=== PATIENT | female | born 1950 | race Caucasian/White ===

== ENCOUNTER 2018-11-23 10:31 | Day surgery (SDC) | payer OTHER ==
--- OUTSIDE RECORDS SUMMARY | 2018-11-23 10:34 | XMS REPORT | Encounter Summary ---
:1950 Author Care Team Providers Name Role Phone Christine Loving Primary Care Provider [phone] Reason for Visit sore throat; congestion; Cough Instructions 1. Acute maxillary sinusitis Bactrim DS 800 mg-160 mg tablet Kenalog 40 mg/mL suspension for injection 2. Impaired glucose tolerance hemoglobin A1c, QN, blood CMP, serum or plasma urinalysis, complete CBC w/ auto diff metformin ER 500 mg tablet,extended release 24 hr 3. Hyperlipidemia lipid panel, serum TSH, serum or plasma simvastatin 20 mg tablet Discussion Note RTC for any other concerns; counseled on diet and exercise Patient educational handouts: No information available. Plan of Care Patient Instructions medication as directed; push fluids and ensure rest; focus on healthy eating habits and exercise Reminders Provider Appointments None recorded. Lab Hemoglobin [place] a1C, QN, Blood 06/15/2018 [facility] (Lab) CMP, Serum or [place] Plasma 06/15/2018 [facility] (Lab) Lipid Panel, [place] Serum 06/15/2018 [facility] (Lab) TSH, Serum or [place] Plasma 06/15/2018 [facility] (Lab) Urinalysis, [place] Complete 06/15/2018 [facility] (Lab) CBC W/ Auto [place] Diff 06/15/2018 [facility] (Lab) Referral None recorded. Procedures None recorded. Surgeries None recorded. Imaging None recorded. Medications Name Start Date Bactrim DS 800 mg-160 mg tablet Take 1 tablet every 12 hours by oral route for 7 days. Kenalog 40 mg/mL suspension for injection Take 40 mg by injection route. meloxicam 15 mg tablet Take 1 tablet every day by oral route as needed. metformin ER 500 mg tablet,extended release 24 hr TAKE 2 TABLETS BY MOUTH EVERY DAY simvastatin 20 mg tablet TAKE 1 TABLET BY MOUTH EVERY DAY AT BEDTIME Transderm-Scop 1.5 mg transdermal patch (1 mg over 3 days) Apply 1 patch every 72 hours by transdermal route. Medications Administered Name Date Kenalog 40 mg/mL suspension for injection 5638-83-25F15:12:00 Take 40 mg by injection route. Vitals Height Weight BMI Blood Pressure 62 in 129 lbs 1 oz 23.6 kg/m2 126/74 mm[Hg] Lab Results None recorded. Allergies Code Code System Name Reaction Severity Status Onset 20340822 RxNorm Compazine Active 4053 RxNorm Erythromycin Base Active 227966 RxNorm Lipitor Active Penicillins Active Problems Name Status Onset Date Source Hyperlipidemia Active Encounter Seasonal Allergic Rhinitis Active Encounter Urinary Tract Infectious Disease Active Encounter Palpitations Active Encounter Impaired Glucose Tolerance Active Encounter Elevated Blood Pressure Active Encounter Procedures Date Name Performed by 05/19/2007 Colonoscopy Information not available Cholecystectomy Information not available Vaccine List Vaccine Type pneumococcal conjugate PCV 13 06/08/20150.5 mL pneumococcal polysaccharide PPV23 09/12/20150.5 mL Social History Smoking Status Never Smoker Past Encounters 06/15/2018 Acute Maxillary Sinusitis; Impaired Glucose Tolerance; Hyperlipidemia Mackenzie Paniagua LEARNING SUPPORT AIDE: [address] [facility], [address], [place] [address], Ph. History of Present Illness Note: pt to clinic for cough, congestion, sinus pressure, sore throat x 1.5 weeks; she reports symptoms began to improve and now have gotten worse; she has had thick green mucous/phlegm; she has been taking otc medications with little change; she also needs labs completed Review of Systems General Adult ROS Reported By: Patient Constitutional: Constitutional: no fever ENMT: Ears: ear pain. Nose: nose/sinus problems. Mouth/Throat: sore throat Cardiovascular: Cardiovascular: no chest pain Respiratory: Respiratory: no wheezing, no shortness of breath, cough Gastrointestinal: Gastrointestinal: no abdominal pain, no vomiting, no diarrhea Neurologic: Neurologic: no dizziness, no headaches Endocrine: Endocrine: no fatigue Allergic/Immunologic: Allergy/Immunologic: sinus pressure Physical Exam Fabienne Brief Adult Exam - M/F Reported By: Patient Constitutional: General Appearance: healthy-appearing, well-nourished, well-developed. Level of Distress: NAD. Ambulation: ambulating normally Psychiatric: Mental Status: active and alert ENMT: Ears: middle ear fluid; left. Nose: nasal passages clear. Oropharynx: moist mucous membranes, no exudates, erythema Neck: Lymph Nodes: cervical LAD Lungs: Auscultation: breath sounds normal Cardiovascular: Heart Auscultation: RRR, normal S1, normal S2, no murmurs Musculoskeletal: Edema absent Notes: maxillary sinus tenderness
--- OUTSIDE RECORDS SUMMARY | 2018-11-23 10:34 | XMS REPORT | Encounter Summary ---
:1950 Author Care Team Providers Name Role Phone Harris Walsh MD Primary Care Provider [phone] Reason for Visit Pain Instructions 1. Spasm of back muscles cyclobenzaprine 10 mg tablet 2. Screening for malignant neoplasm of breast learning about breast cancer screening MAMMO, screening, digital, bilateral 3. Screening for malignant neoplasm of colon colonoscopy screening (PROC) 4. Impaired glucose tolerance prediabetes: care instructions hemoglobin A1c, QN, blood CMP, serum or plasma lipid panel, serum Discussion Note: None recorded. Plan of Care Reminders Provider Appointments Return to on or around Harris Ramirez Office 09/28/2018 [facility] Hemoglobin 09/21/2018 [facility] a1C, QN, [facility] (Lab) CMP, Serum 09/21/2018 [facility] or [facility] (Lab) Lipid Panel, 09/21/2018 [facility] (Lab) Referral None recorded. Procedures Colonoscopy 09/21/2018 [facility] Screening (PROC) Laboratories (Cologuard Orders Only) Surgeries None recorded. Imaging MAMMO, 09/21/2018 [facility] Screening, Digital, Medical Center Bilateral (Scheduling) Medications Name Start Date cyclobenzaprine 10 mg tablet Take 1 tablet every day by oral route at bedtime for 7 days. metformin ER 500 mg tablet,extended release 24 hr TAKE 2 TABLETS BY MOUTH EVERY DAY simvastatin 20 mg tablet TAKE 1 TABLET BY MOUTH EVERY DAY AT BEDTIME Medications Administered None recorded. Vitals Height Weight BMI Blood Pressure 62 in 119 lbs 4 oz 21.8 kg/m2 153/72 mm[Hg] Lab Results Date Name Specimen Result Interpretation Description Value Range Status Address 09/21/2018 Hemoglobin High Hemoglobin a1C 6.3 % 4.0-6.0 % Final [facility] a1C, QN, [facility] (Lab): [address] [facility] 09/21/2018 CMP, Serum or High Glucose 133 82-115 Final [facility] Plasma mg/dL mg/dL [facility] (Lab): [address] [place] [address] Normal Blood Urea 10 8-23 Final [facility] Nitrogen mg/dL mg/dL [facility] (Lab): [address] [place] [address] Normal Osmolality 280 280-300 Final [facility] Calculated, [facility] (Lab): [address] [place] [address] Normal Creatinine 0.6 0.50-0.90 Final [facility] mg/dL mg/dL [facility] (Lab): [address] [place] [address] Normal Glomerular >60.0 Final [facility] Filtration Rate 0 [facility] (Lab): [address] [place] [address] Normal BUN/creatinine 16.7 12-20 Final [facility] Ratio [facility] (Lab): [address] [place] [address] Normal Sodium Level 140 135-145 Final [facility] mmol/ mmol/L [facility] (Lab): [address] [place] [address] Normal Potassium 4.2 3.5-5.2 Final [facility] Level mmol/ mmol/L [facility] (Lab): [address] [place] [address] Normal Chloride Level 101 98-108 Final [facility] mmol/ mmol/L [facility] (Lab): [address] [place] [address] Normal Co2 26 21-32 Final [facility] mmol/ mmol/L [facility] (Lab): [address] [place] [address] Normal Anion Gap 17.2 12-20 Final [facility] mEq/L mEq/L [facility] (Lab): [address] [place] [address] Normal Calcium Level 10.2 8.8-10.2 Final [facility] mg/dL mg/dL [facility] (Lab): [address] [place] [address] Normal Total Protein 8.3 6.6-8.7 Final [facility] g/dL g/dL [facility] (Lab): [address] [place] [address] Normal Albumin 4.9 3.5-5.2 Final [facility] g/dL g/dL [facility] (Lab): [address] [place] [address] Normal Globulin 3.4 Final Hall gm/dL [facility] (Lab): [address] [place] [address] Normal A/g Ratio 1.4 >1.0 Final Hall [facility] (Lab): [address] [place] [address] Normal Bilirubin,tota 0.4 0.0-1.2 Final [facility] l mg/dL mg/dL [facility] (Lab): [address] [place] [address] Low AST/SGOT 14 15-32 U/L Final [facility] U/L [facility] (Lab): [address] [place] [address] Normal ALT/SGPT 13 0-33 U/L Final [facility] U/L [facility] (Lab): [address] [place] [address] Normal Alkaline 49 35-105 Final [facility] Phosphatase, U/L U/L [facility] (Lab): [address] [place] [address] 09/21/2018 Lipid Panel, High Cholesterol 203 150-200 Final Hall Serum Level mg/dL mg/dL [facility] (Lab): [address] [place] [address] High Triglycerides 154 <150 Final [facility] Level mg/dL mg/dL [facility] (Lab): [address] [place] [address] Low HDL 63 >65 mg/dL Final [facility] Cholesterol mg/dL [facility] (Lab): [address] [place] [address] High LDL 125 <100 Final Hall Cholesterol mg/dL mg/dL [facility] (Lab): [address] [place] [address] Normal Cholesterol 3.222 Final Hall Risk Ratio [facility] (Lab): [address] [place] [address] Allergies Code Code System Name Reaction Severity Status Onset 20340822 RxNorm Compazine Irregular Mild to Active Heart Rate Moderate 4053 RxNorm Erythromycin Base Nausea Mild to Active Moderate 779958 RxNorm Lipitor Myalgias Mild to Active (Muscle Pain) Moderate Penicillins Rash Mild to Active Moderate Problems Name Status Onset Date Source Hyperlipidemia Active Encounter Seasonal Allergic Rhinitis Active Encounter Urinary Tract Infectious Disease Active Encounter Palpitations Active Encounter Impaired Glucose Tolerance Active Encounter Elevated Blood Pressure Active Encounter Procedures Date Name Performed by 05/19/2007 Colonoscopy Information not available Cholecystectomy Information not available 09/21/2018 MAMMO, Screening, Digital, Bilateral [facility] (Scheduling) [address] [place] [address] (Work [address]) Vaccine List Vaccine Type pneumococcal conjugate PCV 13 06/08/20150.5 mL pneumococcal polysaccharide PPV23 09/12/20150.5 mL Social History Smoking Status Never Smoker Past Encounters 09/21/2018 Spasm of Back Muscles; Screening for Malignant Neoplasm of Breast; Screening for Malignant Neoplasm of Colon; Impaired Glucose Tolerance Harris Walsh MD: [address] [facility], [address], [place] [address], Ph. History of Present Illness Note: Patient is a pleasant 68-year-old female who comes in here to establish care. She states that for the past week she has had pain to the right subcostal region that radiates to the back. There is also started after she helped her do some rewiring of the house. She did some twisting and some lifting but she does not think it was that severe. She has not associated any fevers or chills no nausea or vomiting. She does state that the skin feels very sensitive. This all started last weekbut she has not noticed any rashes. No history of zoster infection. She is status post cholecystectomy. Denies nausea or vomiting postprandial. Moving the thorax sometimes makes the pain worse. She states that overall she is getting better.& lt;div>
</div><div>Patient has ahistory of glucose intolerance. Otherwise she states that she is very healthy. She will need to bescheduled for a mammogram as well as for colon cancer screenings.</div> Review of Systems General Adult ROS Reported By: Patient Constitutional: Constitutional: no fever, no night sweats, no significant weight gain, no significant weight loss Eyes: Eyes: no dry eyes, no irritation ENMT: Ears: no difficulty hearing. Nose: no frequent nosebleeds. Mouth/Throat: no sore throat Cardiovascular: Cardiovascular: no chest pain, no arm pain on exertion, no shortness of breath when walking, no shortness of breath when lying down, no palpitations Respiratory: Respiratory: no cough, no wheezing, no shortness of breath, no coughing up blood Gastrointestinal: Gastrointestinal: no abdominal pain, no vomiting, normal appetite, no diarrhea, not vomiting blood Genitourinary: Genitourinary: no incontinence, no difficulty urinating, no hematuria Musculoskeletal: Musculoskeletal: no muscle aches, no muscle weakness, no arthralgias/joint pain, back pain Integumentary: Skin: no abnormal mole, no jaundice, no rashes Neurologic: Neurologic: no loss of consciousness, no weakness, no numbness, no seizures, no dizziness Psychiatric: Psych: no depression, no sleep disturbances Endocrine: Endocrine: no fatigue Hematologic/Lymphatic: Hematologic/Lymphatic no swollen glands, no bruising Allergic/Immunologic: Allergy/Immunologic: no runny nose, no sinus pressure, no itching, no hives, no frequent sneezing Physical Exam General Adult Exam - Female Reported By: Patient Constitutional: General Appearance: healthy-appearing, well-nourished, well-developed. Level of Distress: NAD. Ambulation: ambulating normally Psychiatric: Insight: good judgement. Mental Status: active and alert, normal mood, normal affect. Orientation: to time, to place, to person. Memory: recent memory normal Head: Head: normocephalic Eyes: Pupils: PERRLA. EOM: EOMI. Sclerae: non-icteric ENMT: Oropharynx: moist mucous membranes Neck: Neck: supple, FROM. Thyroid: no enlargement, non-tender, no nodules Lungs: Respiratory effort: no dyspnea. Auscultation: breath sounds normal, good air movement Cardiovascular: Heart Auscultation: RRR, normal S1, normal S2. Neck vessels: no carotid bruits. Pulses including femoral / pedal: normal throughout Abdomen: Bowel Sounds: normal. Inspection and Palpation: soft, non-distended, no guarding, RUQ tenderness Musculoskeletal:: Motor Strength and Tone: normal motor strength, normal tone. Joints, Bones, and Muscles: normal movement of all extremities. Extremities: no cyanosis, no edema, no varicosities Neurologic: Gait and Station: normal gait, normal station. Cranial Nerves: grossly intact. Reflexes: DTRs 2+ bilaterally throughout Skin: Inspection and palpation: no rash, no lesions
--- OUTSIDE RECORDS SUMMARY | 2018-11-23 10:34 | XMS REPORT | Encounter Summary ---
:1950 Author Care Team Providers Name Role Phone Harris Walsh MD Primary Care Provider [phone] Reason for Visit Follow Up Results Instructions 1. Mixed hyperlipidemia simvastatin 40 mg tablet 2. Impaired glucose tolerance prediabetes: care instructions Discussion Note: None recorded. Plan of Care Reminders Provider Appointments Follow up 04/07/2019 Harris Ramirez 8:30AM MD [facility] None recorded. Referral None recorded. Procedures None recorded. Surgeries None recorded. Imaging None recorded. Medications Name Start Date metformin ER 500 mg tablet,extended release 24 hr TAKE 2 TABLETS BY MOUTH EVERY DAY simvastatin 40 mg tablet Take 1 tablet every day by oral route at bedtime for 90 days. Medications Administered None recorded. Vitals Height Weight BMI Blood Pressure 62 in 121 lbs 3.2 oz 22.2 kg/m2 156/77 mm[Hg] Lab Results Date Name Specimen Result Interpretation Description Value Range Status Address 09/21/2018 Hemoglobin High Hemoglobin a1C 6.3 % 4.0-6.0 % Final [place] a1C, QN, [facility] Blood [facility] (Lab): [address] [place] [address] 09/21/2018 CMP, Serum or High Glucose 133 82-115 Final [place] Plasma mg/dL mg/dL [facility] (Lab): [address] [place] [address] Normal Blood Urea 10 8-23 Final [place] Nitrogen mg/dL mg/dL [facility] (Lab): [address] [place] [address] Normal Osmolality 280 280-300 Final [place] Calculated, [facility] (Lab): [address] [place] [address] Normal Creatinine 0.6 0.50-0.90 Final [place] mg/dL mg/dL [facility] (Lab): [address] [place] [address] Normal Glomerular >60.0 Final [place] Filtration Rate [address] [facility] (Lab): [address] [place] [address] Normal BUN/creatinine 16.7 12-20 Final [place] Ratio [facility] (Lab): [address] [place] [address] Normal Sodium Level 140 135-145 Final [place] mmol/ mmol/L [facility] (Lab): [address] [place] [address] Normal Potassium 4.2 3.5-5.2 Final [place] Level mmol/ mmol/L [facility] (Lab): [address] [place] [address] Normal Chloride Level 101 98-108 Final [place] mmol/ mmol/L [facility] (Lab): [address] [place] [address] Normal Co2 26 21-32 Final [place] mmol/ mmol/L [facility] (Lab): [address] [place] [address] Normal Anion Gap 17.2 12-20 Final [place] mEq/L mEq/L [facility] (Lab): [address] [place] [address] Normal Calcium Level 10.2 8.8-10.2 Final [place] mg/dL mg/dL [facility] (Lab): [address] [place] [address] Normal Total Protein 8.3 6.6-8.7 Final [place] g/dL g/dL [facility] (Lab): [address] [place] [address] Normal Albumin 4.9 3.5-5.2 Final [place] g/dL g/dL [facility] (Lab): [address] [place] [address] Normal Globulin 3.4 Final [place] gm/dL [facility] (Lab): [address] [place] [address] Normal A/g Ratio 1.4 >1.0 Final [facility] (Lab): [address] [place] [address] Normal Bilirubin,tota 0.4 0.0-1.2 Final [place] l mg/dL mg/dL [facility] (Lab): [address] [place] [address] Low AST/SGOT 14 15-32 U/L Final [place] U/L [facility] (Lab): [address] [place] [address] Normal ALT/SGPT 13 0-33 U/L Final [place] U/L [facility] (Lab): [address] [place] [address] Normal Alkaline 49 35-105 Final [place] Phosphatase, U/L U/L [facility] (Lab): [address] [place] [address] 09/21/2018 Lipid Panel, High Cholesterol 203 150-200 Final [place] Serum Level mg/dL mg/dL [facility] (Lab): [address] [place] [address] High Triglycerides 154 <150 Final [place] Level mg/dL mg/dL [facility] (Lab): [address] [place] [address] Low HDL 63 >65 mg/dL Final [place] Cholesterol mg/dL [facility] (Lab): [address] [place] [address] High LDL 125 <100 Final [place] Cholesterol mg/dL mg/dL [facility] (Lab): [address] [place] [address] Normal Cholesterol 3.222 Final [place] Risk Ratio [facility] (Lab): [address] [place] [address] Allergies Code Code System Name Reaction Severity Status Onset 20340822 RxNorm Compazine Irregular Mild to Active Heart Rate Moderate 4053 RxNorm Erythromycin Base Nausea Mild to Active Moderate 448389 RxNorm Lipitor Myalgias Mild to Active (Muscle [...] not available 09/21/2018 MAMMO, Screening, Digital, Bilateral [facility] (Scheduling) [address] [place] [address] (Work [address]) Vaccine List Vaccine Type pneumococcal conjugate PCV 13 06/08/20150.5 mL pneumococcal polysaccharide PPV23 09/12/20150.5 mL Social History Smoking Status Never Smoker Past Encounters 10/05/2018 Mixed Hyperlipidemia; Impaired Glucose Tolerance Harris Walsh MD: [address] [facility], [address], [place] [address], Ph. 09/21/2018 Spasm of Back Muscles; Screening for Malignant Neoplasm of Breast; Screening for Malignant Neoplasm of Colon; Impaired Glucose Tolerance Harris Walsh MD: [address] [facility], [address], [place] [address], Ph. History of Present Illness Note: Patient is a pleasant 68-year-old female who comes in For follow-up on labs. Denies major complaints.No polyuria or polydipsia or polyphagia. No history of coronary artery disease or peripheral vessel disease. No lower extremity with paroxysmal nocturnal dyspnea or anginal symptoms.<div>< br></div><div>Patient has a history of glucose intolerance and hyperlipidemia: Recent A1c was 6.3%. Lipid profile revealed an LDL of 125. HDL was 63. Triglycerides were 154. Totalcholesterol was 203. Liver function tests were normal.</div> Review of Systems General Adult ROS Reported [...] aches, no muscle weakness, no arthralgias/joint pain, no back pain Integumentary: Skin: no abnormal mole, [...] normal. Inspection and Palpation: soft, non-distended, no tenderness, no guarding Musculoskeletal:: Motor Strength and Tone: normal motor strength, normal tone. Joints, Bones, and Muscles: normal movement of all extremities. Extremities: no cyanosis, no edema, no varicosities Neurologic: Gait and Station: normal gait, normal station. Cranial Nerves: grossly intact. Reflexes: DTRs 2+ bilaterally throughout Skin: Inspection and palpation: no rash, no lesions
[2018-11-23] MEDS ORDERED: DUOVISC 1 KIT OPTH ONE (11:17)
[2018-11-23] MEDS ORDERED: EPINEPHRINE/PF 1 MG/ML AMP ONE (11:17)
[2018-11-23] MEDS ORDERED: NS 0.9% VIAL 10 ML ONE (11:17)
[2018-11-23] MEDS ORDERED: BALANCED SALT IRRIG PLAIN 500 ML BTL IRR ONE (11:17)
[2018-11-23] MEDS ORDERED: MOXIFLOXACIN HCL 10 DROPS/ML **OR USE OPTH ONE (11:19)
[2018-11-23] MEDS ORDERED: LIDOCAINE 2% INJ, MPF 2 ML 1 ML ONE (11:19)
[2018-11-23] MEDS ORDERED: BSS PLUS 500 ML BOTTLE IRR ONE (11:24)
[2018-11-23] MEDS ORDERED: BUPIVACAINE 0.25% PF 10 ML VIAL ONE (11:41)
[2018-11-23] MEDS ORDERED: LIDOCAINE 2% MPF 5 ML VIAL ONE (11:41)
[2018-11-23] MEDS ORDERED: TETRACAINE HCL 0.5% 4ML OPTH ONE (11:42)
[2018-11-23] MEDS ORDERED: NA CHLORIDE 0.9% 500 ML ONE (11:42)
[2018-11-23] MEDS ORDERED: LIDOCAINE HCL/PF 3.5% OPTH GEL ONE (11:42)
[2018-11-23] MEDS ORDERED: FENTANYL CITR 100 MCG/2 ML ONE (12:00)
[2018-11-23] MEDS: PHENYLEPHRINE 10% OPTH 5ML ONE ×3 (12:03→12:15)
[2018-11-23] MEDS: CYCLOPENTOLATE 1% OPTH 2 ML ONE ×3 (12:03→12:15)
[2018-11-23] MEDS ORDERED: MIDAZOLAM HCL 2 MG/2 ML INJ ONE (13:07)
[2018-11-23] MEDS ORDERED: LIDOCAINE 1% MPF 2 ML AMPULE ONE (13:24)
--- NOTE | 2018-11-23 13:38 | P.BOP ---
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
--- NOTE | 2018-11-23 22:49 | OP ---
Date of Procedure: 11/23/2018 Surgeon: Jonelle Spangler MD Anesthesiologist: Lorena Guy CRNA and Amilcar Rivera MD. Preoperative Diagnoses: Nuclear sclerotic cataract and Fuch's dystrophy, right eye. Operation Performed: Phacoemulsification with intraocular lens implant, right eye. Anesthesia: Per cataract surgery. Complications: None. Description Of Procedure: In the operating room the patient was prepped and draped in the usual sterile fashion for ophthalmic surgery. A lid speculum was placed in the right eye. Two paracentesis sites were made superiorly and inferiorly in the limbal cornea. Viscoat was placed in the anterior chamber and a crescent blade was used to make a corneal groove and tunnel, and a keratome was used to enter the anterior chamber. Provisc was placed in the anterior chamber and a 360 degree capsulotomy was performed with a cystitome. The lens was hydrodissected with BSS and rotated freely. The lens was removed with a stop and chop technique. 11.50 phaco CDE was used to remove the lens. Residual cortex was removed with the irrigation and aspiration. Provisc was placed in the capsular bag. A ZCB00 +18.5 Lens was placed in the capsular bag without complications. Irrigation and aspiration were used to remove residual viscoelastic. The paracentesis sites were hydrated with BSS. The wound and paracentesis sites were inspected and found to be watertight. Vigamox 0.07 cc was placed intracamerally at the end of the procedure. The eye was irrigated with balanced salt solution. The eye was patched with a soft cotton patch and [place] metal shield. The patient was returned to day surgery in good condition. Comments: Akten was placed in the eye in Day Surgery and irrigated out of the eye with BSS in the OR. Preservative-free 1% lidocaine was placed in the anterior chamber prior to Viscoat. A scleral incision was created after incising the conjunctiva with Dash scissors. BSS Plus was used. At the end of the procedure, the conjunctiva was reapproximated with cautery. Discharge Instructions: Ms. Bennett is discharged to home in good condition. ED/MICHEAL Voice ID: [id number] Report ID: [id number]
== END 2018-11-23 14:05 | disposition home or self-care (01) ==
LOC: OR 10:31
PROVIDERS: ATTEND Ophthalmology Retina Specialist
PROC: 08RJ3JZ Replacement of Right Lens with Synthetic Substitute, Percutaneous Approach (ICD-10-PCS; principal; 2018-11-23 11:30)
DX: H25.11 Age-related nuclear cataract, right eye (principal); H25.011 Cortical age-related cataract, right eye; H18.51 Endothelial corneal dystrophy; E11.9 Type 2 diabetes mellitus without complications; E78.00 Pure hypercholesterolemia, unspecified; Z79.84 Long term (current) use of oral hypoglycemic drugs; Z79.899 Other long term (current) drug therapy
CPT/HCPCS: 82962; J0171; J2001; J2250; J3010; J3490

== ENCOUNTER 2019-01-25 07:01 | Day surgery (SDC) | payer OTHER ==
[2019-01-25] MEDS ORDERED: NS 0.9% VIAL 10 ML ONE (07:53)
[2019-01-25] MEDS ORDERED: EPINEPHRINE/PF 1 MG/ML AMP ONE (07:53)
[2019-01-25] MEDS ORDERED: DUOVISC 1 KIT OPTH ONE (07:54)
[2019-01-25] MEDS ORDERED: LIDOCAINE 2% INJ, MPF 2 ML 1 ML ONE (07:56)
[2019-01-25] MEDS ORDERED: MOXIFLOXACIN HCL 10 DROPS/ML **OR USE OPTH ONE (07:56)
[2019-01-25] MEDS ORDERED: LIDOCAINE 2% MPF 5 ML VIAL ONE (07:56)
[2019-01-25] MEDS ORDERED: BUPIVACAINE 0.25% PF 10 ML VIAL ONE (07:56)
[2019-01-25] MEDS ORDERED: BSS PLUS 500 ML BOTTLE IRR ONE (07:56)
[2019-01-25] MEDS ORDERED: NA CHLORIDE 0.9% 500 ML ONE (07:57)
[2019-01-25] MEDS ORDERED: LIDOCAINE HCL/PF 3.5% OPTH GEL ONE (07:57)
[2019-01-25] MEDS ORDERED: TETRACAINE HCL 0.5% 4ML OPTH ONE (07:57)
[2019-01-25] MEDS: PHENYLEPHRINE 10% OPTH 5ML ONE ×3 (08:18→08:29)
[2019-01-25] MEDS: CYCLOPENTOLATE 1% OPTH 2 ML ONE ×3 (08:19→08:29)
[2019-01-25] MEDS ORDERED: MIDAZOLAM HCL 2 MG/2 ML INJ ONE (08:41)
[2019-01-25] MEDS ORDERED: FENTANYL CITR 100 MCG/2 ML ONE (08:41)
--- NOTE | 2019-01-25 09:50 | P.BOP ---
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
[2019-01-25] MEDS ORDERED: LIDOCAINE 1% MPF 2 ML AMPULE ONE (10:00)
[2019-01-25 10:10] VITALS: O2SAT 99
[2019-01-25 10:40] VITALS: BP 129/60; TEMP 98
--- NOTE | 2019-01-25 20:42 | OP ---
Date of Procedure: 01/25/2019 Surgeon: Jonelle Spangler MD Anesthesiologist: Temo Wright CRNA and Davis Pendleton M.D. 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 Operation Performed: Phacoemulsification with intraocular lens implant, left eye. Anesthesia: Per cataract surgery. Complications: None. Description Of Procedure: In the operating room the patient was prepped and draped in the usual sterile fashion for ophthalmic surgery. A lid speculum was placed in the left eye. Two paracentesis sites were made superiorly and inferiorly in the limbal cornea. Viscoat was placed in the anterior chamber and a crescent blade was used to make a corneal groove and tunnel, and a keratome was used to enter the anterior chamber. Provisc was placed in the anterior chamber and a 360 degree capsulotomy was performed with a cystitome. The lens was hydrodissected with BSS and rotated freely. The lens was removed with a stop and chop technique. 11.35 phaco CDE was used to remove the lens. Residual cortex was removed with the irrigation and aspiration. Provisc was placed in the capsular bag. A ZCB00 +18.5 lens was placed in the capsular bag without complications. Irrigation and aspiration was used to remove residual viscoelastic. The paracentesis sites were hydrated with BSS. The wound and paracentesis sites were inspected and found to be watertight. Vigamox 0.07 cc was placed intracamerally at the end of the procedure. The eye was irrigated with balanced salt solution. The eye was patched with a soft cotton patch and Lima metal shield. The patient was returned to day surgery in good condition. Comments: Akten was placed in the eye in day surgery and irrigated out of the eye with BSS in the OR. 1% preservative-free lidocaine was placed in the anterior chamber prior to Viscoat. 2% xylocaine was injected subconjunctivally temporally with TB syringe. A scleral incision was created after incising the conjunctiva with Miguel scissors. BSS Plus was used. Extra Viscoat was used under. Discharge Instructions: Ms. Bennett is discharged to home in good condition to follow up with Dr. Spangler in the morning. ED/MICHEAL Voice ID: [id number] Report ID: [id number] MTDD
== END 2019-01-25 10:35 | disposition home or self-care (01) ==
LOC: OR 07:01
PROVIDERS: ATTEND Ophthalmology Retina Specialist
PROC: 08RK3JZ Replacement of Left Lens with Synthetic Substitute, Percutaneous Approach (ICD-10-PCS; principal; 2019-01-25 09:50)
DX: H25.812 Combined forms of age-related cataract, left eye (principal); H18.51 Endothelial corneal dystrophy; E11.9 Type 2 diabetes mellitus without complications; E78.00 Pure hypercholesterolemia, unspecified; Z88.0 Allergy status to penicillin; Z88.3 Allergy status to other anti-infective agents; Z88.8 Allergy status to other drugs, medicaments and biological substances; Z90.49 Acquired absence of other specified parts of digestive tract; Z83.511 Family history of glaucoma; Z80.9 Family history of malignant neoplasm, unspecified; Z83.3 Family history of diabetes mellitus
CPT/HCPCS: 82962; 66984; J0171; J2250; J3010; J2001; J3490